=== PATIENT | female | born 1970 | race Caucasian/White ===

== ENCOUNTER 2016-05-22 11:12 | Emergency (ER) | payer OTHER ==
[~2016-05-22] VITALS: Ht 157.5 cm; Wt 56.7 kg
[~2016-05-22 11:12] MED LIST: LEVO75TA5 PO; ONDA4TAB46 PO; OXYC1TAB3 PO
[2016-05-22 11:15] VITALS: TEMP 36.8; Ht 157.5 cm; Wt 56.7 kg
[2016-05-22] MEDS ORDERED: MoRPHine SULFATE 10 MG/ML CARP/VIAL IV STA (11:46)
[2016-05-22] MEDS ORDERED: SODIUM CHLORIDE 0.9% 500ML 500 ML IV STA (11:46)
[2016-05-22] MEDS ORDERED: ONDANSETRON INJ 2 MG/ML 2 ML VIAL IV STA (11:46)
[2016-05-22 12:15] LABS: BASO % 0.4 %; BASO ABS # 0.03 K/uL (0-0.2); COMPLETE YES; EOS % 1.2 %; HEMATOCRIT 39.8 % (37-47); IG% 0.1 %; LYMPH ABS # 1.22 K/uL (1.2-3.4); MEAN CORPUSCULAR HEMOGLOBIN 25.8 pg (25-34); MEAN CORPUSCULAR HGB CONC 32.7 g/dl (32-36); MEAN PLATELET VOLUME 9.6 fL (7.4-10.4); MONO % 8.1 %; NEUT % 75.2 %; PLATELET COUNT 464 K/uL (130-400); RED BLOOD COUNT 5.04 M/uL (4.2-5.4); WHITE BLOOD COUNT 8.11 K/uL (4.8-10.8)
[2016-05-22] MEDS ORDERED: MoRPHine SULFATE 4 MG/ML 1 ML CARP\\VIAL IV STA (12:50)
[2016-05-22 13:09] LABS: URINE APPEARANCE CLEAR (CLEAR); URINE BILIRUBIN NEG (NEG); URINE COLOR YELLOW; URINE NITRITE NEG (NEG); URINE SPECIFIC GRAVITY 1.011 (1.000-1.030); UROBILINOGEN NEG (NEG); ZZUR CULT IF INDIC CLEAN CATCH NO
[2016-05-22 13:11] LABS: MANUAL MICROSCOPIC REQUIRED? NO; REVIEW REQ? NO
[2016-05-22 13:11] LABS: ALB/GLOB RATIO 1.1 (0.9-2); BUN/CREATININE RATIO 16.5 (10-20); CALCIUM 8.9 mg/dl (8.5-10.1); CREATININE 0.71 mg/dl (0.60-1.20)
--- NOTE | 2016-05-22 13:40 | DIAGNOSTIC IMAGING REPORT ---
EXAMINATION: PELVIC ULTRASOUND (transabdominal and endovaginal scanning) CLINICAL HISTORY: Bilateral teratomas. Pelvic pain. Possible torsion. COMPARISON STUDY: 04/13/2016 FINDINGS: The uterus measured 10 x 5 x 4.7 cm. There is a 3.9 cm left fundal fibroid. The endometrial stripe measured 11 mm. There is a 1 cm echogenic focus within the endometrium. A small polyp cannot be excluded.. The right ovary measured there is an echogenic right adnexal mass measuring 9.6 x 8.6 x 5.8 cm. This is consistent with the patient's known ovarian teratoma.. The left ovary measured 6 x 5 x 3 cm. This contains both cystic and echogenic foci. The lesion is consistent with the patient's known teratoma.. There is no ultrasound evidence of ovarian torsion however this diagnosis cannot be excluded the basis of ultrasound. There was no evidence of pathologic free pelvic fluid. IMPRESSION: 1. Bilateral adnexal masses, consistent with the patient's known bilateral ovarian teratomas 2. No ultrasound evidence of ovarian torsion however this diagnosis cannot be excluded on the basis of ultrasound 3. 3.9 cm left fundal fibroid 4. 1 cm echogenic focus within the endometrium. A small polyp cannot be excluded Electronically signed by: Maulik Malone M.D. 05/22/2016 1:39 PM Dictated Date/Time: 05/22/2016 1:32 PM
--- NOTE | 2016-05-22 13:59 | EMERGENCY ROOM VISIT NOTE ---
ED Visit Note First contact with patient: 11:32 I have personally evaluated and examined this patient. I agree with assessment and plan of Bismark Correa PA-C. During my examination patient has only having mild abdominal pain, this she reports this is chronic, not acute she's had worse pains before, and has run out of her pain medication. I do not believe clinically that this represents an acute torsion additionally when combined with the ultrasound findings is highly unlikely to represent an acute torsion she is planned surgery for Tuesday 7 days from now.
[2016-05-22] MEDS ORDERED: OXYC-57 PO (14:17)
--- NOTE | 2016-05-22 14:20 | EMERGENCY ROOM VISIT NOTE ---
History First contact with patient: 11:32 Chief Complaint: ABDOMINAL PAIN Stated Complaint: STOMACH PAIN Nursing Triage Summary: triage note: Pt reports "i have bad stomach pain i was here a month ago and i have tumors on both ovaries." History of Present Illness The patient is a 45 year old female who presents to the Emergency Room with complaints of bilateral lower abdominal pain. The patient reports that she was seen here approximately one month ago and diagnosed with tumors on her ovaries. She has since followed up with INSURANCE FOLLOW UP REP and they scheduled her for surgery this week. She states that they prescribed her pain medication earlier this month, but she just ran out of it yesterday. She called them and they told her they were unable to give her any additional prescriptions until they evaluate her. She states that the pain is worse on the left side. It feels like a pressure in her lower abdomen. She rates the discomfort an 8/10. She was previously taking Percocet which was prescribed to her. She is now taking ibuprofen with little relief. She denies any abnormal vaginal discharge or bleeding. She denies any fevers/chills. Review of Systems A complete 10-point Review of Systems was discussed with the patient, with pertinent positives and negatives listed in the History of Present Illness. All remaining Review of Systems questions can be considered negative unless otherwise specified. Past Medical/Surgical History Surgical Problems: (1) Hx of tonsillectomy (2) S/P cholecystectomy Family History Diabetes mellitus Social History Smoking Status: Never Smoker Alcohol Use: none Drug Use: none Marital Status: Housing Status: lives with family Occupation Status: employed Current/Historical Medications Scheduled Levothyroxine Sodium (Levothyroxine Sodium), 75 MCG PO QAM Scheduled PRN Ondansetron Hcl (Zofran), 4 MG PO BID PRN for Nausea Oxycodone/Acetaminophen 5MG/325MG (Percocet 5MG/325MG), 1-2 TABS PO Q6H PRN for Pain Allergies Coded Allergies: No Known Allergies (Verified , 05/11/16) Physical Exam Vital Signs Date Time Temp Pulse Resp B/P Pulse Ox O2 Delivery O2 Flow Rate FiO2 05/22/16 14:26 87 17 120/81 95 05/22/16 12:49 87 17 134/87 95 Room Air 05/22/16 11:15 36.8 123 18 139/94 94 Room Air Physical Exam VITALS: Vitals are noted on the nurse's note and reviewed by myself. Vital signs stable. GENERAL: This is a 45-year-old female, in no acute distress, nondiaphoretic, well-developed well-nourished. SKIN: Capillary reflex less than 2 seconds. HEART: Regular rate and rhythm without murmurs gallops or rubs. LUNGS: Clear to auscultation bilaterally without wheezes, rales or rhonchi. ABDOMEN: Positive bowel sounds x 4. Soft, mild tenderness to the lower abdomen. No guarding or rebound tenderness. NEURO: Patient was alert and oriented to person place and time. Medical Decision & Procedures ER Provider Diagnostic Interpretation: EXAMINATION: PELVIC ULTRASOUND (transabdominal and endovaginal scanning) CLINICAL HISTORY: Bilateral teratomas. Pelvic pain. Possible torsion. COMPARISON STUDY: 04/13/2016 FINDINGS: The uterus measured 10 x 5 x 4.7 cm. There is a 3.9 cm left fundal fibroid. The endometrial stripe measured 11 mm. There is a 1 cm echogenic focus within the endometrium. A small polyp cannot be excluded.. The right ovary measured there is an echogenic right adnexal mass measuring 9.6 x 8.6 x 5.8 cm. This is consistent with the patient's known ovarian teratoma.. The left ovary measured 6 x 5 x 3 cm. This contains both cystic and echogenic foci. The lesion is consistent with the patient's known teratoma.. There is no ultrasound evidence of ovarian torsion however this diagnosis cannot be excluded the basis of ultrasound. There was no evidence of pathologic free pelvic fluid. IMPRESSION: 1. Bilateral adnexal masses, consistent with the patient's known bilateral ovarian teratomas 2. No ultrasound evidence of ovarian torsion however this diagnosis cannot be excluded on the basis of ultrasound 3. 3.9 cm left fundal fibroid 4. 1 cm echogenic focus within the endometrium. A small polyp cannot be excluded Laboratory Results 05/22/16 11:25 Red Blood Count 5.04, Mean Corpuscular Volume 79.0, Mean Corpuscular Hemoglobin 25.8, Mean Corpuscular Hemoglobin Concent 32.7, Mean Platelet Volume 9.6, Neutrophils (%) (Auto) 75.2, Lymphocytes (%) (Auto) 15.0, Monocytes (%) (Auto) 8.1, Eosinophils (%) (Auto) 1.2, Basophils (%) (Auto) 0.4, Neutrophils # (Auto) 6.09, Lymphocytes # (Auto) 1.22, Monocytes # (Auto) 0.66, Eosinophils # (Auto) 0.10, Basophils # (Auto) 0.03 05/22/16 11:25 Test 05/22/16 11:25 05/22/16 13:00 White Blood Count 8.11 K/uL (4.8-10.8) Red Blood Count 5.04 M/uL (4.2-5.4) Hemoglobin 13.0 g/dL (12.0-16.0) Hematocrit 39.8 % (37-47) Mean Corpuscular Volume 79.0 fL (80-100) Mean Corpuscular Hemoglobin 25.8 pg (25-34) Mean Corpuscular Hemoglobin Concent 32.7 g/dl (32-36) Platelet Count 464 K/uL (130-400) Mean Platelet Volume 9.6 fL (7.4-10.4) Neutrophils (%) (Auto) 75.2 % Lymphocytes (%) (Auto) 15.0 % Monocytes (%) (Auto) 8.1 % Eosinophils (%) (Auto) 1.2 % Basophils (%) (Auto) 0.4 % Neutrophils # (Auto) 6.09 K/uL (1.4-6.5) Lymphocytes # (Auto) 1.22 K/uL (1.2-3.4) Monocytes # (Auto) 0.66 K/uL (0.11-0.59) Eosinophils # (Auto) 0.10 K/uL (0-0.5) Basophils # (Auto) 0.03 K/uL (0-0.2) RDW Standard Deviation 44.8 fL (36.4-46.3) RDW Coefficient of Variation 15.5 % (11.5-14.5) Immature Granulocyte % (Auto) 0.1 % Immature Granulocyte # (Auto) 0.01 K/uL (0.00-0.02) Anion Gap 8.0 mmol/L (3-11) Est Creatinine Clear Calc Drug Dose 80.8 ml/min Estimated GFR () 120.9 Estimated GFR (Non- 104.3 BUN/Creatinine Ratio 16.5 (10-20) Calcium Level 8.9 mg/dl (8.5-10.1) Total Bilirubin 0.4 mg/dl (0.2-1) Aspartate Amino Transf (AST/SGOT) 20 U/L (15-37) Alanine Aminotransferase (ALT/SGPT) 38 U/L (12-78) Alkaline Phosphatase 65 U/L (45-117) Total Protein 6.7 gm/dl (6.4-8.2) Albumin 3.5 gm/dl (3.4-5.0) Globulin 3.2 gm/dl (2.5-4.0) Albumin/Globulin Ratio 1.1 (0.9-2) Urine Color YELLOW Urine Appearance CLEAR (CLEAR) Urine pH 5.0 (4.5-7.5) Urine Specific [place] 1.011 (1.000-1.030) Urine Protein NEG (NEG) Urine Glucose (UA) NEG (NEG) Urine Ketones NEG (NEG) Urine Occult Blood NEG (NEG) Urine Nitrite NEG (NEG) Urine Bilirubin NEG (NEG) Urine Urobilinogen NEG (NEG) Urine Leukocyte Esterase NEG (NEG) Urine Test NEG (NEG) Medications Administered Medications (Trade) Dose Ordered Sig/Isai Route Start Time Stop Time Status Last Admin Dose Admin Sodium Chloride (Nss 500ml) 500 ml @ 999 mls/hr Q31M STAT IV 05/22/16 11:46 05/22/16 12:16 DC 05/22/16 11:57 999 MLS/HR Ondansetron HCl (Zofran Inj) 4 mg NOW STAT IV 05/22/16 11:46 05/22/16 11:49 DC 05/22/16 11:58 4 MG Morphine Sulfate (MoRPHine SULFATE INJ) 6 mg NOW STAT IV 05/22/16 11:46 05/22/16 11:49 DC 05/22/16 11:58 6 MG Morphine Sulfate (MoRPHine SULFATE INJ) 4 mg NOW STAT IV 05/22/16 12:50 05/22/16 12:51 DC 05/22/16 12:56 4 MG Medical Decision Differential diagnosis includes ovarian torsion, teratoma, gastroenteritis, colitis, appendicitis, among others. The patient was evaluated as above. Labs were drawn and IV access was obtained. Imaging studies were performed and read by radiology as above. The patient was medicated with a total of 8 mg morphine IV. The patient was reassessed multiple times during their stay in the emergency department and remained in stable condition. The patient is a 45-year-old female who presents today complaining of lower abdominal pain. She has been diagnosed with bilateral ovarian teratomas. She is scheduled for surgery this week. Ultrasound was performed to rule out torsion and was negative for any signs of torsion at this time. Labs are unremarkable. Urinalysis was not suggestive of infection. Urine was negative. The PDMP was reviewed. The patient has not received a large amount of narcotics in the past few months. I do feel it is reasonable to provide her with an additional prescription until she can have surgery this week. She is to follow-up with her INSURANCE FOLLOW UP REP for further evaluation and return here if she has any worsening symptoms. Based on the patient's presentation, lab results, and imaging studies, I feel the patient is stable for outpatient treatment. The patient was independently evaluated by Dr. Stovall, ED attending physician, who agreed with my assessment and treatment plan. Discharge instructions were reviewed with the patient. The patient verbalized understanding of my assessment and treatment plan and was discharged home in good condition. Impression Primary Impression: Ovarian teratoma Departure Information Dispostion Home / Self-Care Condition GOOD Prescriptions Oxycodone/Acetaminophen 5MG/325MG (PERCOCET 5MG/325MG) Tab 1-2 TABS PO Q6H Y for Pain, #24 TAB For Initial Treatment Prov: Phyllis Correa ., [place] 05/22/16 Referrals Stacia Shaw DO (PCP) Patient Instructions [facility] Additional Instructions You have been treated in the Emergency Department for your Abdominal Pain. Laboratory results and imaging studies have ruled out any emergent causes for your abdominal pain which would warrant admission or surgery. You have been prescribed Percocet to be used for pain control. This is a narcotic medication. You cannot drive or consume alcohol while on this medicine. This medicine should only be used for pain that cannot be controlled with [id number] pain medicines. For pain control, you can use the following [id number] medicines (if >12 yo): - Regular strength (325mg/tab) Tylenol (acetaminophen) 2 tabs every 4-6 hours as needed. Do not exceed 12 tablets in a 24 hour period. Avoid taking more than 4 grams (4000 mg) of Tylenol per day. This includes any other sources of acetaminophen you may take on a regular basis. - Regular strength (200 mg/tab) Advil (ibuprofen) 1-2 tabs every 4-6 hours as needed. Do not exceed a dose of 3200 mg per day. Drink plenty of water and stay well hydrated. Follow-up with INSURANCE FOLLOW UP REP as scheduled. Return to the emergency department if your symptoms worsen. Problem Qualifiers Primary Impression: Ovarian teratoma
[2016-05-22 14:26] VITALS: BP 120/81; PULSE 87; O2SAT 95
[2016-05-29] MEDS ORDERED: OXYC-57 PO (10:14)
[2016-05-29] MEDS ORDERED: MTR600X PO (10:14)
== END 2016-05-22 14:27 | disposition home or self-care (01) ==
LOC: C.EDB 11:12
DX: D27.0 Benign neoplasm of right ovary (principal); D27.1 Benign neoplasm of left ovary; Z83.3 Family history of diabetes mellitus

== ENCOUNTER 2016-05-28 06:27 | Observation (INO) | payer OTHER ==
[2016-05-11 09:54] VITALS: BMI 22.0
--- NOTE | 2016-05-11 10:16 | PAT Medication Instructions ---
Service Date May 11, 2016. Current Home Medication List Levothyroxine Sodium (Levothyroxine Sodium), 75 MCG PO QAM Ondansetron Hcl (Zofran), 4 MG PO BID PRN for Nausea Oxycodone Ir (Roxicodone Ir), 5 MG PO Q6H PRN for Pain Medication Instructions For Your Scheduled Surgery - Take the following medications the morning of surgery with a sip of water: Levothyroxine Sodium (Levothyroxine Sodium), 75 MCG PO QAM Ondansetron Hcl (Zofran), 4 MG PO BID PRN for Nausea Oxycodone Ir (Roxicodone Ir), 5 MG PO Q6H PRN for Pain (okay to take up to 4 hours prior to surgery if needed) - Take the following medications as scheduled the night before surgery: Ondansetron Hcl (Zofran), 4 MG PO BID PRN for Nausea Oxycodone Ir (Roxicodone Ir), 5 MG PO Q6H PRN for Pain If you have any questions please call us at [phone] (Elizabeth Logan PA-C) or [phone] or [phone]
[~2016-05-28] VITALS: Ht 157.5 cm; Wt 56.4 kg
[2016-05-28] VITALS (9 sets, daily range): BP systolic 103–143; BP diastolic 68–96; PULSE 89–109; TEMP 36.7–37.4; O2SAT 93–99; Ht 157.5 cm; Wt 56.4 kg
[~2016-05-28 06:27] MED LIST changes: +LACTATED RINGER'S 1000ML 1,000 ML IV SCH; +OXYC-57 PO; -OXYC1TAB3 PO
[2016-05-28] MEDS ORDERED: LIDOCAINE HCL 2% 2 ML VIAL (20MG/ML) ONE (07:18)
[2016-05-28] MEDS ORDERED: PROPOFOL IV EMULSION 10 MG/ML 20 ML VIAL IV ONE ×2 (07:18→09:09)
[2016-05-28] MEDS ORDERED: GLYCOPYRROLATE INJ 0.2 MG/ML VIAL ONE (07:18)
[2016-05-28] MEDS ORDERED: PHENYLEPHRINE HCL INJ 10 MG/ML VIAL ONE (07:18)
[2016-05-28] MEDS ORDERED: EpHEDrine SULFATE INJ 50 MG/ML AMP ONE (07:18)
[2016-05-28] MEDS ORDERED: FENTANYL CITRATE INJ 50 MCG/1 ML 2 ML VIAL ONE ×2 (07:18→09:08)
[2016-05-28] MEDS ORDERED: DEXAMETHASONE SOD INJ 4 MG/ML VIAL ONE (07:18)
[2016-05-28] MEDS ORDERED: ROCURONIUM BROMIDE 10 MG/ML 5 ML VIAL ONE (07:18)
[2016-05-28] MEDS ORDERED: MIDAZOLAM HCL 1 MG/ML 2ML VIAL ONE (07:18)
[2016-05-28] MEDS ORDERED: ONDANSETRON INJ 2 MG/ML 2 ML VIAL ONE (07:18)
[2016-05-28] MEDS ORDERED: SUCCINYLCHOLINE CHLORIDE 20 MG/ML 10 ML VIAL IV ONE (07:18)
[2016-05-28] MEDS ORDERED: NEOSTIGMINE METHYLSULFATE 5 MG/5 ML SYR ONE (07:18)
[2016-05-28] MEDS ORDERED: ATROPINE SULFATE 0.1 MG/ML 5ML SYR IV PRN ×2 (07:30→10:30)
[2016-05-28] MEDS ORDERED: ONDANSETRON INJ 2 MG/ML 2 ML VIAL IV PRN ×3 (07:30→10:30)
[2016-05-28] MEDS ORDERED: KETOROLAC TROMETHAMINE 30 MG/ML VIAL IV. PRN ×2 (07:30→09:45)
[2016-05-28] MEDS ORDERED: SCOPOLAMINE 1.5 MG TDSY TD ONE (07:34)
--- NOTE | 2016-05-28 07:51 | History & Physical Bridge Note ---
H&P Re-Evaluation Bridge Note: I have examined the patient, reviewed the History & Physical and in the interval since the performance of the History & Physical I have noted the following changes of clinical significance: No changes noted
[2016-05-28] MEDS ORDERED: LABETALOL HCL IV 5 MG/ML 20ML ONE (08:09)
[2016-05-28] MEDS ORDERED: DiphenhydrAMINE HCL 50 MG/ML VIAL ONE (08:15)
[2016-05-28] MEDS ORDERED: BUPIVACAINE 0.5 % 5 MG/1 ML MPF 30ML VIAL INJ ONE (09:09)
[2016-05-28] MEDS ORDERED: METOCLOPRAMIDE HCL INJ 5 MG/ML 2 ML VIAL ONE (09:09)
[2016-05-28] MEDS ORDERED: RANITIDINE HCL 25 MG/ML INJ ONE (09:09)
--- NOTE | 2016-05-28 09:41 | [facility] Post Operative Brief Note ---
Immediate Operative Summary Operative Date May 28, 2016. Pre-Operative Diagnosis Bilateral dermoid cysts Post-Operative Diagnosis Same as pre-operative Procedure(s) Performed Diagnostic laparoscopy, Exploratory laparotomy bilateral salpingo-oophorectomy Surgeon Dr. Preston Maxillofacial Prosthetics Dentist Surgeon(s) Estimated Blood Loss 25ml Findings bilateral ovarian cysts Specimens A .Right fallopian tube and ovary B.Left fallopian tube and ovary Drains Antoine Anesthesia General Complication(s) None Disposition Recovery Room / PACU
[2016-05-28] MEDS ORDERED: MoRPHine SULFATE 4 MG/ML 1 ML CARP\\VIAL IV PRN (09:45)
[2016-05-28] MEDS ORDERED: MoRPHine SULFATE 2 MG/ML CARP IV PRN (09:45)
[2016-05-28] MEDS ORDERED: HYDROCODONE/ACETAMOPHEN 5/325MG TAB PO PRN ×4 (09:45)
[2016-05-28] MEDS: FENTANYL CITRATE INJ 50 MCG/1 ML 2 ML VIAL IV PRN ×8 (09:47→10:22)
--- NOTE | 2016-05-28 10:24 | OPERATIVE REPORT ---
DATE OF OPERATION: 05/28/2016 PREOPERATIVE DIAGNOSIS: Bilateral dermoid cysts. POSTOPERATIVE DIAGNOSIS: Same. PROCEDURE: Diagnostic laparoscopy, exploratory laparotomy and bilateral salpingo-oophorectomy. SURGEON: Dr. Preston. RESPIRATORY CARE TECHNICIAN: Dr. Rojas. ANESTHESIA: General. ESTIMATED BLOOD LOSS: 25 mL. DRAINS: Antoine draining clear. COMPLICATIONS: None. CLINICAL HISTORY: The patient is a 45-year-old female para 3-0-0-3, admitted for a diagnostic laparoscopy, possible operative laparoscopy, possible laparotomy for bilateral dermoid cysts. The patient was identified prior to the start of the procedure. A timeout was called and consents were reviewed. OPERATION AND FINDINGS: DESCRIPTION OF PROCEDURE: Under satisfactory general anesthesia, the patient was placed in dorsal lithotomy position. She was prepped and draped in usual sterile fashion. A Antoine catheter was placed. Exam under anesthesia revealed fullness in both adnexa. The posterior vault of the vagina a weighted speculum was placed and a Cahootify intracervical cannula cannula for manipulation was then placed on the anterior lip of the cervix. Attention was then directed abdominally where small infraumbilical stab wound with #11 knife blade was made. The incision was widened to 1 cm. After 3 liters of carbon dioxide gas the #11 trocar was introduced under direct visualization of the camera with a nonbladed trocar. Upon entering into the abdominal cavity the patient was placed in Trendelenburg position and bilateral dermoid cysts were noted. On the right there was a large cyst that was probably greater than 9 cm. The left side was much smaller, probably 4-5 cm at most. The upper abdomen was explored. There were adhesions from the previous cholecystectomy. The appendix was visualized and was within normal limits. The uterus was visualized and found to be normal. The uterus was freely mobile. The decision was then made that the dermoids were too large to be removed laparoscopically so attention was directed to open the patient for laparotomy which she was previously consented. The trocar was removed. Laparoscope was removed, some of the gas was allowed to remain inside. The laparoscopic incision was closed with deep suture of 0 Vicryl suture followed by a subcuticular 3-0 Monocryl suture. Marcaine 0.5% was used to instill this incision. Next, attention was directed abdominally where a Pfannenstiel incision was made in a mini laparotomy fashion extending down through the subcuticular layer of fascia. Peritoneum was opened. The abdomen was packed with 3 moist laparotomy packs, the bilateral ovarian cysts were identified. There were delivered through the incision and using the LigaSure device the left ovary and tube were removed followed serially by the right. These 2 ovaries were removed and placed in separate containers for separate pathology specimens. No active bleeding was noted. The contents of the abdominal and pelvic cavity were then irrigated to clear. Three laparotomy packs were then removed. The initial sponge, needle and instrument count were found to be correct. The peritoneum was closed with 0 Vicryl suture in a continuous fashion followed by closure of the fascia with 0 Vicryl suture in a continuous manner from both ends. Subcuticular layers were closed with 3-0 plain suture, followed by 4-0 Monocryl suture for the skin. Steri-Strips were applied to the wound and a dressing. The remaining vaginal instruments were removed. The final sponge, needle and instrument count were found to be correct. EBL was 25 mL. The patient was then taken to recovery room in stable condition. Final sponge, needle and instrument counts being correct. The patient will be staying overnight and then will possibly be discharged in the morning. I attest to the content of the Intraoperative Record and any orders documented therein. Any exceptio ns are noted below.
[2016-05-28] MEDS ORDERED: HYDROmorphone INJ 2 MG/ML SYR/VIAL IV PRN (10:30)
--- NOTE | 2016-05-28 11:00 | Anesthesiology Progress Note ---
Anesthesia Post Op Note Date & Time May 28, 2016 at 11:00 Vital Signs Vital Signs Past 12 Hours Date Time Temp Pulse Resp B/P Pulse Ox O2 Delivery O2 Flow Rate FiO2 05/28/16 10:30 36.4 81 16 143/89 96 Nasal Cannula 3 05/28/16 10:20 90 16 132/82 99 Nasal Cannula 3 05/28/16 10:10 72 16 142/89 99 Nasal Cannula 3 05/28/16 10:00 85 16 152/98 100 Mask 10 05/28/16 09:50 82 16 144/88 100 Mask 10 05/28/16 09:40 36.3 83 16 157/93 100 Mask 10 05/28/16 06:44 36.9 97 16 120/96 98 Room Air Notes Mental Status: alert / awake / arousable, participated in evaluation Pt Amnestic to Procedure: Yes Nausea / Vomiting: adequately controlled Pain: adequately controlled Airway Patency, RR, SpO2: stable & adequate BP & HR: stable & adequate Hydration State: stable & adequate Anesthetic Complications: no major complications apparent
[2016-05-28] MEDS ORDERED: SODIUM CHLORIDE 0.9% 1000ML 1,000 ML IV SCH (12:00)
[2016-05-28] MEDS: OXYCODONE/ACETAMINOPHEN 5-325 TAB PO PRN ×3 (12:04→20:41)
[2016-05-28] MEDS ORDERED: NURSING VERBAL MED ORDER ONE (14:15)
[2016-05-28] MEDS: IBUPROFEN 600 MG TAB PO PRN (15:04)
[2016-05-29 03:00] VITALS: BP 118/73; PULSE 84; TEMP 36.9; O2SAT 98
[2016-05-29] MEDS: IBUPROFEN 600 MG TAB PO PRN (03:08)
[2016-05-29] MEDS: OXYCODONE/ACETAMINOPHEN 5-325 TAB PO PRN ×2 (03:09→07:36)
[2016-05-29 07:30] VITALS: BP 119/78; PULSE 66; TEMP 36.7; O2SAT 97
[2016-05-29] MEDS ORDERED: MTR600X PO (10:14)
[2016-05-29] MEDS ORDERED: OXYC-57 PO (10:14)
[2016-05-29 10:16] VITALS: BP 119/78; PULSE 66; TEMP 36.7; O2SAT 97
--- NOTE | 2016-05-29 10:17 | Discharge Instructions ---
Discharge Instructions Admission Reason for Admission: Bilateral Ovarian Dermoid Discharge Discharge Diagnosis / Problem: bilateral ovarian dermoids Discharge Goals Goal(s): Routine recovery after delivery, Routine recovery after surgery Activity Recommendations Activity Limitations: as noted below Lifting Limitations: no more than 10 pounds Exercise/Sports Limitations: gradually increase as tolerated, until after follow-up appointment Shower/Bathe: no limitations, keep incision dry Driving or Machine Use: . Instructions / Follow-Up Instructions / Follow-Up ACTIVITY RECOMMENDATIONS: * Avoid tampons, douching, hot tubs, pools, and intercourse until bleeding has stopped. * May shower as usual. * No strenuous activity for 24-48 hours. After 24-48 hours, you can do anything you feel like doing (driving and sports are okay). RETURN TO SCHOOL/WORK: * You may return to school or work after 24 hours unless specified by your physician. DIET: * Resume previous diet. MEDICATIONS: Resume previous medications unless instructed otherwise by your surgeon. Ibuprofen 200mg 2-3 tablets every 4-6 hours as needed --OR-- Aleve 2 tablets every 8-12 hours as needed for post-operative discomfort Medications are over the counter. Tylenol may be used if above medications are contraindicated or not preferred. Medication should be taken with food or milk. do not take on an empty stomach. SPECIAL CARE INSTRUCTIONS: * Check temperature twice daily for one week. Report any elevation over 101 degrees. * Call office if you experience increased pelvic pain or discomfort not relieved by pain medicine, if you have foul smelling vaginal discharge, if you have bleeding that is heavier than a normal menstrual flow. If you are changing a maxi pad every 1- 2 hours, this is too heavy. vaginal spotting is normal for 1-2 weeks. FOLLOW UP VISIT: Call your doctor's office for a post-operative visit. Current Hospital Diet Patient's current hospital diet: Regular Diet Discharge Diet Recommended Diet: Regular Diet Procedures Procedures Performed: Diagnostic laparoscopy, Exploratory laparotomy bilateral salpingo-oophorectomy Pending Studies Studies pending at discharge: no Medical Emergencies . Who to Call and When: Medical Emergencies: If at any time you feel your situation is an emergency, please call 911 immediately. . Non-Emergent Contact Non-Emergency issues call your: Primary Care Provider . . "Provider Documentation" section prepared by Bib Preston. VTE Core Measure Inpt VTE Proph given/why not?: Treatment not indicated
--- NOTE | 2016-05-29 10:19 | Surgery Progress Note ---
Surgery Progress Note Date of Service May 29, 2016. Subjective Post OP Day: 1 + feeling well Objective Vital Signs: Date Time Temp Pulse Resp B/P Pulse Ox O2 Delivery O2 Flow Rate FiO2 05/29/16 07:30 97 Room Air 05/29/16 07:30 36.7 66 18 119/78 97 Room Air 05/29/16 03:00 36.9 84 18 118/73 98 Room Air 05/28/16 23:00 96 Room Air 05/28/16 23:00 36.9 90 20 103/68 96 Room Air 05/28/16 19:50 36.7 92 18 107/70 94 Room Air 05/28/16 15:50 Room Air 05/28/16 15:50 36.9 94 18 107/74 96 Room Air 05/28/16 13:55 36.8 100 18 112/74 93 Room Air 05/28/16 12:55 36.8 109 20 131/79 96 Room Air 05/28/16 12:00 37.4 96 18 122/79 98 Nasal Cannula 1.0 05/28/16 11:30 36.8 89 16 125/83 99 Nasal Cannula 1.0 05/28/16 10:55 95 Nasal Cannula 2.5 05/28/16 10:55 95 Nasal Cannula 2.5 05/28/16 10:55 36.9 99 16 143/84 95 Nasal Cannula 2.5 05/28/16 10:30 36.4 81 16 143/89 96 Nasal Cannula 3 05/28/16 10:20 90 16 132/82 99 Nasal Cannula 3 General Appearance: no apparent distress Abdomen: non tender, non distended, soft Incision(s): clean, dry, intact Extremities: non-tender, normal inspection, no pedal edema Assessment & Plan POD#1 discharged regular diet
[2016-05-29] MEDS ORDERED: OXYCODONE/ACETAMINOPHEN 5-325 TAB ONE (11:10)
[2016-05-29] MEDS ORDERED: IBUPROFEN 600 MG TAB ONE (11:10)
[2016-05-29] MEDS ORDERED: IV FLUIDS COMPLETED PRN (13:15)
--- NOTE | 2016-06-09 09:54 | DISCHARGE SUMMARY ---
REASON FOR ADMISSION AND HOSPITAL COURSE: The patient is a 45-year-old female para 3-0-0-3, who is admitted for diagnostic laparoscopy, and possible operative laparoscopy for bilateral dermoids. The patient had a diagnostic laparoscopy performed and there was a large dermoid almost 10 cm that was too big to remove laparoscopically decision was made to make a mini laparotomy incision, which was done successfully without difficulty removing bilateral dermoid tumors. This was submitted to pathology which confirmed bilateral dermoid cysts. Hospital course was unremarkable. The patient was discharged home the next day in stable condition. Home going instructions were given. Condition on discharge is stable. MEDICATIONS ON DISCHARGE: Included ibuprofen. FOLLOWUP: Will be in the office in 1 week for an incision check. CONDITION ON DISCHARGE: Stable. Regular diet on discharge.
== END 2016-05-29 11:25 | disposition home or self-care (01) ==
LOC: ENRESERVDT → ENRESERVTM → C.ACU 06:27 → C.MS4N 10:16
PROVIDERS: ADMIT Obstetrics & Gynecology; ATTEND Obstetrics & Gynecology
DX: D27.0 Benign neoplasm of right ovary (principal); D27.1 Benign neoplasm of left ovary; Z53.31 Laparoscopic surgical procedure converted to open procedure

== ENCOUNTER 2017-02-11 15:26 | Emergency (ER) | payer OTHER ==
[~2017-02-11] VITALS: Ht 160 cm; Wt 62.4 kg
[~2017-02-11 15:26] MED LIST changes: -LACTATED RINGER'S 1000ML 1,000 ML IV SCH; -LEVO75TA5 PO; +MTR600X PO
[2017-02-11 15:55] VITALS: TEMP 36.9; Ht 160 cm; Wt 62.4 kg
[2017-02-11] MEDS ORDERED: IBUP-103 PO (17:04)
[2017-02-11] MEDS ORDERED: PRED10TA PO (17:04)
[2017-02-11] MEDS ORDERED: NUTRTAB40 PO (17:04)
[2017-02-11 17:20] LABS: URINE APPEARANCE CLEAR (CLEAR); URINE BILIRUBIN NEG (NEG); URINE COLOR YELLOW; URINE NITRITE NEG (NEG); URINE PH 8.5 (4.5-7.5); URINE SPECIFIC GRAVITY 1.009 (1.000-1.030); UROBILINOGEN NEG (NEG)
[2017-02-11 17:29] LABS: MANUAL MICROSCOPIC REQUIRED? NO; REVIEW REQ? NO
[2017-02-11] MEDS ORDERED: LEVO75TA5 PO (17:34)
[2017-02-11 17:35] LABS: PREG INTERNAL NEGATIVE QC NEG CLEAR BACKGROUND; PREG INTERNAL POSITIVE QC POS CONTROL LINE
[2017-02-11 17:42] LABS: ALT/SGPT 35 U/L (12-78); AST/SGOT 18 U/L (15-37); BLOOD UREA NITROGEN 14 mg/dl (7-18); BUN/CREATININE RATIO 15.8 (10-20); CALCIUM 9.4 mg/dl (8.5-10.1); CARBON DIOXIDE 26 mmol/L (21-32); CHLORIDE 105 mmol/L (98-107); CREATININE 0.89 mg/dl (0.60-1.20); GLUCOSE 103 mg/dl (70-99); POTASSIUM 3.8 mmol/L (3.5-5.1); SODIUM 140 mmol/L (136-145)
--- NOTE | 2017-02-11 17:46 | DIAGNOSTIC IMAGING REPORT ---
CT HEAD WITHOUT CONTRAST (CT) CLINICAL HISTORY: Dizziness. Hypertension. COMPARISON STUDY: No previous studies for comparison. TECHNIQUE: Axial CT of the brain is performed from the vertex to the skull base. IV contrast was not administered for this examination. A dose lowering technique was utilized adhering to the principles of ALARA. CT DOSE: 537.48 mGy.cm FINDINGS: No intra or extra-axial mass lesions are visualized. There is no CT evidence of acute cortical infarction. There is no evidence of midline shift. There is no acute hemorrhage. No calvarial fractures are visualized. There is slight asymmetry in the temporal horns, a finding of doubtful acute clinical significance. There is no evidence of pathologic ventricular dilatation. There is no evidence of acute sinusitis IMPRESSION: No acute intracranial findings Electronically signed by: Maulik Malone M.D. 02/11/2017 5:44 PM Dictated Date/Time: 02/11/2017 5:43 PM
[2017-02-11 17:47] LABS: ALKALINE PHOSPHATASE 99 U/L (45-117)
[2017-02-11] MEDS ORDERED: LABETALOL HCL IV 5 MG/ML 20ML IV STA ×2 (17:57→19:08)
--- NOTE | 2017-02-11 18:02 | EMERGENCY ROOM VISIT NOTE ---
History First contact with patient: 16:43 Chief Complaint: CARDIAC ASSESSMENT Stated Complaint: CHEST PAIN,BACK PAIN,STOMACH PAIN,HIGH BP Nursing Triage Summary: "I have been to my doctor this week for chest and back pain, but my blood pressure is so high." per pt. History of Present Illness The patient is a 46 year old female who presents to the Emergency Room with complaints of chest pressure, dizziness and headaches for approximately 1 week. The patient saw her primary care physician. She was started on prednisone last week for a cough. Cough has improved. She denies any shortness of breath. No fever or chills. The patient continues to have a constant chest pressure that radiates to her back. She has also had fairly persistent dizziness and headaches. The patient checked her blood pressure today was concerned because it was 170s/100s. The patient does not take anything for hypertension. Review of Systems 10 system review performed and negative unless noted in HPI or below Past Medical/Surgical History Surgical Problems: (1) Hx of tonsillectomy (2) S/P cholecystectomy Hypothyroidism Family History Diabetes mellitus Social History Smoking Status: Never Smoker Alcohol Use: none Drug Use: none Marital Status: Housing Status: lives with family Occupation Status: employed Current/Historical Medications Scheduled Levothyroxine Sodium (Levothyroxine Sodium), 75 MCG PO QAM Metoprolol Tartrate (Lopressor) (Lopressor), 0.5 TAB PO BID Prednisone (Prednisone), PO TAPER UD Scheduled PRN Ibuprofen Tab (Advil), 400 MG PO Q6 PRN for Headache or Pain Nutritional Supplements (Estroven), 1 TAB PO DAILY PRN for HOT FLASHES Physical Exam Vital Signs Date Time Temp Pulse Resp B/P (MAP) Pulse Ox O2 Delivery O2 Flow Rate FiO2 02/11/17 20:20 78 18 138/99 98 02/11/17 19:00 85 18 144/95 98 Room Air 02/11/17 17:51 85 18 155/102 98 Room Air 02/11/17 17:16 97 02/11/17 15:57 100 Room Air 02/11/17 15:55 36.9 108 18 172/114 100 Room Air Physical Exam GENERAL: 46-year-old female, anxious in appearance,, nondiaphoretic, well- developed well-nourished. SKIN: The skin was without rashes, erythema, edema, or bruising. HEAD: Normocephalic atraumatic. EYES: Pupils equal round and reactive to light and accommodation. Conjunctivae without injection, sclerae without icterus. Extraocular movements intact. MOUTH: Mucous membranes moist. Tonsils are not enlarged. Pharynx without erythema or exudate. Uvula midline. Airway patent. Tongue does not deviate. NECK: Supple without nuchal rigidity. No lymphadenopathy. Cervical spine is nontender. No JVD. HEART: Regular rate and rhythm without murmurs gallops or rubs.no tenderness to palpation over the thorax LUNGS: Clear to auscultation bilaterally without wheezes, rales or rhonchi. No accessory muscle use. ABDOMEN: Positive bowel sounds x 4.Soft, nontender, without organomegaly. No guarding or rebound tenderness. MUSCULOSKELETAL: No muscle atrophy, erythema, or edema noted. Full range of motion in all extremities. No tenderness to palpation. Strength 5/5 throughout. NEURO: Patient was alert and oriented to person place and time. Normal sensation to touch. No focal neurological deficits. Medical Decision & Procedures ER Provider Diagnostic Interpretation: CT head IMPRESSION: No acute intracranial findings Electronically signed by: Maulik Mlaone M.D. 02/11/2017 5:44 PM Dictated Date/Time: 02/11/2017 5:43 PM CXR IMPRESSION: No active disease in the chest. Electronically signed by: Maulik Malone M.D. 02/11/2017 6:07 PM Laboratory Results 02/11/17 17:00 Red Blood Count 5.26, Mean Corpuscular Volume 77.0, Mean Corpuscular Hemoglobin 25.3, Mean Corpuscular Hemoglobin Concent 32.8, Mean Platelet Volume 9.4, Neutrophils (%) (Auto) 86.6, Lymphocytes (%) (Auto) 8.8, Monocytes (%) (Auto) 2.8, Eosinophils (%) (Auto) 0.0, Basophils (%) (Auto) 0.2, Neutrophils # (Auto) 10.98, Lymphocytes # (Auto) 1.11, Monocytes # (Auto) 0.36, Eosinophils # (Auto) 0.00, Basophils # (Auto) 0.02 02/11/17 17:00 Test 02/11/17 17:00 White Blood Count 12.67 K/uL (4.8-10.8) Red Blood Count 5.26 M/uL (4.2-5.4) Hemoglobin 13.3 g/dL (12.0-16.0) Hematocrit 40.5 % (37-47) Mean Corpuscular Volume 77.0 fL (80-100) Mean Corpuscular Hemoglobin 25.3 pg (25-34) Mean Corpuscular Hemoglobin Concent 32.8 g/dl (32-36) Platelet Count 462 K/uL (130-400) Mean Platelet Volume 9.4 fL (7.4-10.4) Neutrophils (%) (Auto) 86.6 % Lymphocytes (%) (Auto) 8.8 % Monocytes (%) (Auto) 2.8 % Eosinophils (%) (Auto) 0.0 % Basophils (%) (Auto) 0.2 % Neutrophils # (Auto) 10.98 K/uL (1.4-6.5) Lymphocytes # (Auto) 1.11 K/uL (1.2-3.4) Monocytes # (Auto) 0.36 K/uL (0.11-0.59) Eosinophils # (Auto) 0.00 K/uL (0-0.5) Basophils # (Auto) 0.02 K/uL (0-0.2) RDW Standard Deviation 46.5 fL (36.4-46.3) RDW Coefficient of Variation 16.5 % (11.5-14.5) Immature Granulocyte % (Auto) 1.6 % Immature Granulocyte # (Auto) 0.20 K/uL (0.00-0.02) D-Dimer < 190 ug/L FEU (0-500) Urine Color YELLOW Urine Appearance CLEAR (CLEAR) Urine pH 8.5 (4.5-7.5) Urine Specific [place] 1.009 (1.000-1.030) Urine Protein NEG (NEG) Urine Glucose (UA) NEG (NEG) Urine Ketones NEG (NEG) Urine Occult Blood NEG (NEG) Urine Nitrite NEG (NEG) Urine Bilirubin NEG (NEG) Urine Urobilinogen NEG (NEG) Urine Leukocyte Esterase NEG (NEG) Urine Test NEG (NEG) Anion Gap 9.0 mmol/L (3-11) Est Creatinine Clear Calc Drug Dose 66.7 ml/min Estimated GFR () 91.4 Estimated GFR (Non- 78.8 BUN/Creatinine Ratio 15.8 (10-20) Calcium Level 9.4 mg/dl (8.5-10.1) Total Bilirubin 0.3 mg/dl (0.2-1) Aspartate Amino Transf (AST/SGOT) 18 U/L (15-37) Alanine Aminotransferase (ALT/SGPT) 35 U/L (12-78) Alkaline Phosphatase 99 U/L (45-117) Total Creatine Kinase 93 U/L (26-192) Creatine Kinase MB 0.9 ng/ml (0.5-3.6) Creatine Kinase MB Ratio 1.0 (0-3.0) Troponin I < 0.015 ng/ml (0-0.045) Total Protein 8.2 gm/dl (6.4-8.2) Albumin 4.0 gm/dl (3.4-5.0) Globulin 4.2 gm/dl (2.5-4.0) Albumin/Globulin Ratio 1.0 (0.9-2) Medications Administered Medications (Trade) Dose Ordered Sig/Isai Route Start Time Stop Time Status Last Admin Dose Admin Labetalol HCl (Normodyne IV) 5 mg NOW STAT IV 02/11/17 17:57 02/11/17 17:59 DC 02/11/17 18:21 5 MG Labetalol HCl (Normodyne IV) 5 mg NOW STAT IV 02/11/17 19:08 02/11/17 19:09 DC 02/11/17 19:21 5 MG Ketorolac Tromethamine (Toradol Inj) 30 mg NOW STAT IV 02/11/17 19:42 02/11/17 19:43 DC 02/11/17 19:42 30 MG ECG Indication: chest pain Rate (beats per minute): 91 Rhythm: normal sinus ED Course Patient was seen and examined Vital signs including blood pressure were reviewed medications list was verified with patient Labs were obtained, and a saline lock was established EKG was performed. Manual blood pressure was performed. Imaging was performed. The patient was medicated with labetalol 5 g IV. The patient was reassessed. Her symptoms were slightly improved. The patient was given an additional dose of labetalol 5 mg IV. We discussed the results of her workup, and she voiced understanding. she was comfortable being discharged home. I reviewed discharge instructions the patient. They voiced understanding and had no further questions. Medical Decision Differential diagnosis: Acute myocardial infarction, cardiac arrhythmia, anemia , thyroid abnormality, pneumothorax, pneumonia, bronchitis, pericarditis, electrolyte imbalance , musculoskeletal pain, hypertensive urgency, hypertensive emergency, This patient is a 46-year-old female that presents emergency department complaining of chest pain for 1 week in addition to intermittent dizziness and headaches. She became alarmed today because of an elevated blood pressure. She was nontoxic in appearance. Her cardiac enzymes are negative. EKG shows no signs of ischemia. Her d-dimer is also negative. I do not suspect a pulmonary embolus as she is not hypoxic or complaining of shortness of breath. There are no signs of hypertensive urgency/emergency. Renal function is intact. Chest x-ray is normal in appearance. CT of the head was also normal. Her blood pressure was treated with labetalol in the emergency department with good results. I did start the patient on Lopressor 12.5 mg twice daily. She will be able to check her blood pressure this weekend as she works at [employer]. She was instructed to follow-up with her primary care physician as soon as possible for a blood pressure recheck. She also agreed to return to the emergency department with any new or worsening symptoms. This chart was completed in part utilizing [employer] Speech Voice Recognition software. Attempts were made to minimize the grammatical errors, random word insertions, pronoun errors and incomplete sentences. Any formal questions or concerns about the content, text or information contained within the body of this dictation should be directly addressed to the provider for clarification. Medication Reconcilliation Current Medication List: was personally reviewed by me Blood Pressure Screening Patient's blood pressure: Elevated blood pressure Blood pressure disposition: Referred to PCP Impression Primary Impression: Chest pain Additional Impression: Hypertension Departure Information Dispostion Home / Self-Care Condition GOOD Prescriptions Metoprolol Tartrate (Lopressor) (Lopressor) 25 Mg Tab 0.5 TAB PO BID for 30 Days, #30 TAB 1 Refill Prov: Leanne Hernandez PA-C 02/11/17 Referrals Stacia Shaw DO (PCP) Patient Instructions ED Hypertension [place], [facility] Additional Instructions You were evaluated in the emergency department with a headache, chest pain and high blood pressure. Please follow a low-salt diet. Please begin metoprolol 12.5 mg twice daily. Please check your blood pressure tomorrow and the next day if possible. Please follow-up with your primary care physician early next week. Please return to the emergency department with any new or concerning symptoms Work Instructions Return To Work: 1 day Problem Qualifiers
--- NOTE | 2017-02-11 18:08 | DIAGNOSTIC IMAGING REPORT ---
CHEST ONE VIEW PORTABLE CLINICAL HISTORY: Atypical chest pain and hypertension COMPARISON STUDY: 04/21/2016 FINDINGS: The cardiac and mediastinal contours are normal. There is no evidence of focal pulmonary consolidation. There is no evidence of failure. No pleural effusions are visualized.[ IMPRESSION: No active disease in the chest. Electronically signed by: Maulik Malone M.D. 02/11/2017 6:07 PM Dictated Date/Time: 02/11/2017 6:07 PM
[2017-02-11 18:46] LABS: BASO % 0.2 %; BASO ABS # 0.02 K/uL (0-0.2); COMPLETE YES; HEMATOCRIT 40.5 % (37-47); IG% 1.6 %; LYMPH % 8.8 %; LYMPH ABS # 1.11 K/uL (1.2-3.4); MEAN CORPUSCULAR HEMOGLOBIN 25.3 pg (25-34); MEAN CORPUSCULAR HGB CONC 32.8 g/dl (32-36); MEAN PLATELET VOLUME 9.4 fL (7.4-10.4); MONO % 2.8 %; NEUT % 86.6 %; PLATELET COUNT 462 K/uL (130-400); RED BLOOD COUNT 5.26 M/uL (4.2-5.4); WHITE BLOOD COUNT 12.67 K/uL (4.8-10.8)
[2017-02-11] MEDS ORDERED: KETOROLAC TROMETHAMINE 30 MG/ML VIAL IV STA (19:42)
[2017-02-11] MEDS ORDERED: METO25TA56 PO (20:00)
[2017-02-11 20:20] VITALS: BP 138/99; PULSE 78; O2SAT 98
== END 2017-02-11 20:21 | disposition home or self-care (01) ==
LOC: C.EDB 15:27 → C.EDA 20:21
DX: R07.9 Chest pain, unspecified (principal); I10 Essential (primary) hypertension; E03.9 Hypothyroidism, unspecified; Z83.3 Family history of diabetes mellitus